=== PATIENT | female | born 1985 | race Caucasian/White ===

== ENCOUNTER 2021-04-27 16:01 | Emergency (ER) | payer OTHER ==
[~2021-04-27] VITALS: Ht 152.4 cm; Wt 54.4 kg
[2021-04-27] MEDS ORDERED: FAMOTIDINE 20 MG TAB PO ONE (17:15)
[2021-04-27] MEDS ORDERED: PEPCID20 MG PO (18:05)
== END 2021-04-27 18:53 | disposition home or self-care (01) ==
LOC: ER 16:56
DX: R07.89 Other chest pain (principal); K21.9 Gastro-esophageal reflux disease without esophagitis; R10.13 Epigastric pain; R50.9 Fever, unspecified; F17.210 Nicotine dependence, cigarettes, uncomplicated
CPT/HCPCS: 71045; 93005; 99283

== ENCOUNTER 2021-06-03 16:39 | Emergency (ER) | payer MEDICARE, OTHER ==
[~2021-06-03] VITALS: Ht 152.4 cm; Wt 54.4 kg
[~2021-06-03 16:39] MED LIST: PEPCID20 MG PO
[2021-06-03] MEDS ORDERED: CLEOCIN HCL300 MG PO (17:21)
== END 2021-06-03 17:27 | disposition home or self-care (01) ==
LOC: ER 16:44
DX: K08.89 Other specified disorders of teeth and supporting structures (principal); K02.9 Dental caries, unspecified
CPT/HCPCS: 99283

== ENCOUNTER 2022-02-02 08:21 | Emergency (ER) | payer MEDICARE, OTHER ==
[~2022-02-02] VITALS: Ht 152.4 cm; Wt 54.4 kg
[~2022-02-02 08:21] MED LIST changes: +CLEOCIN HCL300 MG PO
[2022-02-02] MEDS ORDERED: PREDNISONE 20 MG TAB PO ONE (08:45)
[2022-02-02] MEDS ORDERED: ALBUTEROL/IPRATROPIUM 3 ML NEB NEB ONE (08:45)
[2022-02-02] MEDS ORDERED: PROAIR HFA INH8.5 GM INH (09:46)
[2022-02-02] MEDS ORDERED: MUCINEX DM ER1 EACH PO (09:46)
[2022-02-02] MEDS ORDERED: PREDNISONE20 MG PO (09:46)
[2022-02-02 10:01] VITALS: BP 115/82
== END 2022-02-02 10:04 | disposition home or self-care (01) ==
LOC: ER 08:25
DX: R05.9 Cough, unspecified (principal); J45.901 Unspecified asthma with (acute) exacerbation; Z20.822 Contact with and (suspected) exposure to COVID-19; F17.210 Nicotine dependence, cigarettes, uncomplicated
CPT/HCPCS: 71045; 94640; 99283; J7512; U0002

== ENCOUNTER 2022-02-20 17:32 | Emergency (ER) | payer MEDICARE, OTHER ==
[~2022-02-20] VITALS: Ht 152.4 cm; Wt 54.4 kg
[~2022-02-20 17:32] MED LIST changes: +MUCINEX DM ER1 EACH PO; +PREDNISONE20 MG PO; +PROAIR HFA INH8.5 GM INH
[2022-02-20] MEDS ORDERED: ACETAMINOPHEN 325 MG TAB PO ONE (18:00)
[2022-02-20] MEDS ORDERED: SODIUM CHLORIDE 0.9% 1000ML 1,000 ML IV ONE (18:00)
[2022-02-20 18:39] LABS: BASOPHILS # (AUTO) 0.1 (0.0-0.1); BASOPHILS % 0.4 % (0.0-1.0); EOSINOPHILS % 0.1 % (0.0-6.0); HEMATOCRIT 37.8 % (34.2-44.1); HEMOGLOBIN 12.3 g/dL (12.0-16.0); LYMPHOCYTES # (AUTO) 2.9 (1.0-3.2); LYMPHOCYTES % 10.2 % (18.0-39.1); MEAN CORPUSCULAR HEMOGLOBIN 30.9 pg (28-32); MEAN CORPUSCULAR HGB CONC 32.5 g/dL (31-35); MONOCYTES # (AUTO) 2.2 (0.2-0.8); MONOCYTES % 7.8 % (4.4-11.3); NEUTROPHILS # (AUTO) 22.7 (2.1-6.9); NEUTROPHILS % 80.8 % (38.7-80.0); PLATELET COUNT 292 x10e3/uL (140-360); RED BLOOD COUNT 3.98 x10e6/uL (3.6-5.1); RED CELL DISTRIBUTION WIDTH 12.4 % (11.7-14.4)
[2022-02-20 18:59] LABS: ANION GAP 15.5 mmol/L (8-16); CALCIUM 9.5 mg/dL (8.4-10.2); CREATININE, SERUM 0.79 mg/dL (0.57-1.11); POTASSIUM 3.5 mmol/L (3.5-5.1)
[2022-02-20 19:14] LABS: INFLUENZAE A&B ANTIGEN (RAPID) NEGATIVE (NEGATIVE); STREPTOCOCCUS GRP A ANTIGEN POSITIVE (NEGATIVE)
[2022-02-20 19:25] LABS: CLARITY,URINE CLEAR (CLEAR); COLOR,URINE YELLOW (YELLOW); KETONES,URINE NEGATIVE (NEGATIVE); LEUKOCYTE ESTERASE ,URINE NEGATIVE (NEGATIVE); NITRITE,URINE NEGATIVE (NEGATIVE); PROTEIN,URINE DIPSTICK NEGATIVE (NEGATIVE); URINE UROBILINOGEN 1 mg/dL (0.2 - 1)
[2022-02-20] MEDS ORDERED: PENICILLIN G BENZATHINE LA 1.2 MU TBX IM STA (19:44)
[2022-02-20 19:47] LABS: BACTERIA,URINE FEW /HPF; EPITHELIAL CELLS,URINE FEW /LPF; WBC,URINE (MAN) 0-5 /HPF (0-5)
[2022-02-20 20:25] VITALS: BP 113/79
== END 2022-02-20 20:22 | disposition home or self-care (01) ==
LOC: ER 17:52
DX: R50.9 Fever, unspecified (principal); J02.0 Streptococcal pharyngitis; Z20.822 Contact with and (suspected) exposure to COVID-19; F31.9 Bipolar disorder, unspecified
CPT/HCPCS: 36415; 71045; 80048; 81001; 83518; 83605; 85025; 87040; 87400; 99284; J0561; J0696; J7030; U0002

== ENCOUNTER 2022-03-28 10:11 | Emergency (ER) | payer MEDICARE ==
[~2022-03-28] VITALS: Ht 152.4 cm; Wt 54.4 kg
== END 2022-03-28 10:56 | disposition home or self-care (01) ==
LOC: ER 10:31
DX: M25.571 Pain in right ankle and joints of right foot (principal); M77.51 Other enthesopathy of right foot and ankle; J45.909 Unspecified asthma, uncomplicated; F31.9 Bipolar disorder, unspecified; F42.9 Obsessive-compulsive disorder, unspecified; F17.210 Nicotine dependence, cigarettes, uncomplicated
CPT/HCPCS: 99282

== ENCOUNTER 2022-08-10 19:21 | Emergency (ER) | payer MEDICARE ==
[~2022-08-10] VITALS: Ht 152.4 cm; Wt 56.7 kg
[2022-08-10 21:02] LABS: BASOPHILS # (AUTO) 0.1 (0.0-0.1); BASOPHILS % 0.9 % (0.0-1.0); EOSINOPHILS # (AUTO) 0.3 (0.0-0.4); EOSINOPHILS % 3.5 % (0.0-6.0); HEMOGLOBIN 11.8 g/dL (12.0-16.0); LYMPHOCYTES # (AUTO) 2.4 (1.0-3.2); MEAN CORPUSCULAR HEMOGLOBIN 29.9 pg (28-32); MEAN CORPUSCULAR HGB CONC 32.8 g/dL (31-35); MEAN CORPUSCULAR VOLUME 91.1 fL (81-99); MONOCYTES # (AUTO) 1.3 (0.2-0.8); MONOCYTES % 15.7 % (4.4-11.3); NEUTROPHILS # (AUTO) 4.4 (2.1-6.9); NEUTROPHILS % 51.5 % (38.7-80.0); PLATELET COUNT 296 x10e3/uL (140-360); RED BLOOD COUNT 3.95 x10e6/uL (3.6-5.1); RED CELL DISTRIBUTION WIDTH 12.1 % (11.7-14.4)
[2022-08-10 21:20] LABS: ALBUMIN 3.6 g/dL (3.5-5.0); ALBUMIN/GLOBULIN RATIO 1.1 (0.8-2.0); ANION GAP 14.6 mmol/L (8-16); CALCIUM 9.4 mg/dL (8.4-10.2); CREATININE, SERUM 0.65 mg/dL (0.57-1.11); POTASSIUM 3.6 mmol/L (3.5-5.1)
[2022-08-10 21:27] LABS: CREATINE KINASE MB 4.7 ng/mL (0-5.0)
[2022-08-10] MEDS ORDERED: AZITHROMYCIN250 MG PO (23:29)
[2022-08-10] MEDS ORDERED: MEDROL4 M2 PO (23:29)
[2022-08-10 23:43] VITALS: BP 127/64
== END 2022-08-10 23:35 | disposition home or self-care (01) ==
LOC: ER 20:07
DX: R05.9 Cough, unspecified (principal); J40 Bronchitis, not specified as acute or chronic; R09.1 Pleurisy; R94.31 Abnormal electrocardiogram [ECG] [EKG]; F17.210 Nicotine dependence, cigarettes, uncomplicated
CPT/HCPCS: 36415; 71046; 80053; 81001; 81025; 82550; 82553; 84484; 85025; 85379; 93005; 99284

== ENCOUNTER 2022-09-06 12:37 | Emergency (ER) | payer MEDICARE ==
[~2022-09-06] VITALS: Ht 152.4 cm; Wt 56.7 kg
[~2022-09-06 12:37] MED LIST changes: +AZITHROMYCIN250 MG PO; +MEDROL4 M2 PO
== END 2022-09-06 14:31 | disposition home or self-care (01) ==
LOC: ER 12:45
DX: M79.652 Pain in left thigh (principal); R23.3 Spontaneous ecchymoses; J45.909 Unspecified asthma, uncomplicated; F31.9 Bipolar disorder, unspecified
CPT/HCPCS: 99283

== ENCOUNTER 2023-03-17 10:37 | Emergency (ER) | payer MEDICARE ==
[~2023-03-17] VITALS: Ht 165.1 cm; Wt 70.3 kg
[~2023-03-17 10:37] MED LIST changes: +PREDNISONE50 MG PO
[2023-03-17 10:42] VITALS: O2SAT 100
[2023-03-17] MEDS ORDERED: CEFUROXIME250 MG PO (10:58)
== END 2023-03-17 11:02 | disposition home or self-care (01) ==
LOC: ER 10:50
DX: R30.0 Dysuria (principal); N39.0 Urinary tract infection, site not specified; J45.909 Unspecified asthma, uncomplicated; F31.9 Bipolar disorder, unspecified; F17.210 Nicotine dependence, cigarettes, uncomplicated
CPT/HCPCS: 99282

== ENCOUNTER 2023-12-27 18:26 | Emergency (ER) | payer MEDICARE ==
[~2023-12-27] VITALS: Ht 165.1 cm; Wt 70.3 kg
[~2023-12-27 18:26] MED LIST changes: +CEFUROXIME250 MG PO
[2023-12-27] MEDS ORDERED: ACETAMINOPHEN 325 MG TAB PO STA (19:09)
[2023-12-27 19:10] VITALS: PULSE 101; RESP 18; TEMP 99.8; O2SAT 99
[2023-12-27 19:37] LABS: STREPTOCOCCUS GRP A ANTIGEN POSITIVE (NEGATIVE)
[2023-12-27] MEDS ORDERED: AZITHROMYCIN250 MG PO (19:42)
[2023-12-27 19:49] LABS: INFLUENZAE A&B ANTIGEN (RAPID) NEGATIVE (NEGATIVE)
== END 2023-12-27 20:07 | disposition home or self-care (01) ==
LOC: ER 18:32
DX: R50.9 Fever, unspecified (principal); U07.1 COVID-19; J02.0 Streptococcal pharyngitis; J45.909 Unspecified asthma, uncomplicated; F31.9 Bipolar disorder, unspecified; F90.9 Attention-deficit hyperactivity disorder, unspecified type; F17.210 Nicotine dependence, cigarettes, uncomplicated
CPT/HCPCS: 83518; 87400; 99283; U0002

== ENCOUNTER 2024-03-05 09:50 | Emergency (ER) | payer MEDICARE ==
[~2024-03-05] VITALS: Ht 149.9 cm; Wt 52.2 kg
[2024-03-05 10:01] VITALS: PULSE 104; RESP 18; TEMP 99.3; O2SAT 100
[2024-03-05] MEDS ORDERED: LIDOCAINE HCL 1% LOCAL INJ 20 ML VIAL ONE (10:39)
[2024-03-05] MEDS: CEFTRIAXONE 500 MG VIAL IM ONE (10:57)
[2024-03-05] MEDS ORDERED: DOXYCYCLINE HY100 MG PO (11:14)
[2024-03-05] MEDS: PENICILLIN G BENZATHINE LA 1.2 MU TBX IM STA (11:19)
== END 2024-03-05 12:04 | disposition home or self-care (01) ==
LOC: ER 10:03
DX: R50.9 Fever, unspecified (principal); Z03.89 Encounter for observation for other suspected diseases and conditions ruled out; J45.909 Unspecified asthma, uncomplicated; F31.9 Bipolar disorder, unspecified; F42.9 Obsessive-compulsive disorder, unspecified
CPT/HCPCS: 81025; 99283; J0561; J0696; J2003